=== PATIENT | female | born 1955 | race Caucasian/White ===

== ENCOUNTER 2016-09-18 18:24 | Emergency (ER) | payer OTHER ==
[~2016-09-18] VITALS: Ht 154.9 cm; Wt 68.0 kg
[~2016-09-18 18:24] MED LIST: ALPR2TAB3 PO; ATOR20TA42 PO; BACL20TA PO; CLOP75 PO; NEBI5 PO
[2016-09-18 18:25] VITALS: BP 140/74; PULSE 92; RESP 20; TEMP 98.5; O2SAT 94
--- NOTE | 2016-09-18 18:33 | PD ---
Physical Exam Date Seen by Provider: September 18, 2016 Time Seen by Provider: 18:30 Narrative 61 YOWF C/O R ARM PAIN FOR 2 DAYS. NO TRAUMA . 8/10 PAIN. H/O R ELBOW DISLOCATION. ON PLAVIX VSS wating for bed asignment Data Data Last Documented VS Vital Signs Date Time Temp Pulse Resp B/P Pulse Ox O2 Delivery O2 Flow Rate FiO2 09/18/16 18:25 98.5 92 20 140/74 94 Room Air [facility] Medical Record Reviewed: No Supervised Visit with MOHIT: Jean Rodriguez September 18, 2016 18:33
--- NOTE | 2016-09-18 19:09 | PD ---
HPI Chief Complaint: Pain: Acute or Chronic Time Seen by Provider: 19:05 Travel History International Travel<30 days: No Contact w/Intl Traveler<30days: No Traveled to known affect area: No History of Present Illness HPI 61-year-old female presents to the emergency department for evaluation of right arm pain that started yesterday when she woke up. She denies any trauma. She does report a small ecchymosis to the right upper arm. She is unsure how she got this. She reports history of right elbow dislocation, possible fracture based on what she is telling me. She states that she has not had any problems with that since he dislocation. The patient denies any fevers or chills. No redness or swelling. The patient states the pain is worse with movement. She has a history of CVA, hypertension, hyperlipidemia, anxiety. She is currently on Plavix. No chest pain or shortness of breath. No abdominal pain. No vomiting. PFSH Past Medical History Hx Anticoagulant Therapy: Yes (PLAVIX) Arthritis: Yes Autoimmune Disease: No Anxiety: Yes Depression: No Cancer: Yes (Skin on Face) Cerebrovascular Accident: Yes (2016) Diminished Hearing: No Endocrine: No Genitourinary: No Hypertension: Yes Immune Disorder: No Psychiatric: Yes Reproductive: No Migraines: Yes Ulcer: Yes Menopausal: Yes : 1 Para: 1 Tubal Ligation: Yes Past Surgical History Surgical History: No Previous Surgery Section: Yes Eye Surgery: Yes Gynecologic Surgery: Yes ( ) Social History Alcohol Use: No Tobacco Use: No Substance Use: No Allergies-Medications (Allergen,Severity, Reaction): Coded Allergies: Iodine (Verified Allergy, Unknown, 11/30/15) Penicillin (Verified Allergy, Unknown, 11/30/15) Reported Meds & Prescriptions Reported Meds & Active Scripts Active Plavix (Clopidogrel Bisulfate) 75 Mg Tab 75 Mg PO DAILY 31 Days Lipitor 20 Mg Tab (Atorvastatin) 20 Mg Tab 20 Mg PO HS 31 Days Reported Lioresal 20 Mg Tab (Baclofen) 20 Mg Tab 20 Mg PO TID Alprazolam 2 Mg Tab 0.5 Mg PO Q6H PRN Review of Systems Except as stated in HPI: all other systems reviewed are Neg Physical Exam Narrative GENERAL: Well-nourished, well-developed female patient, ambulatory. Afebrile. SKIN: Focused skin assessment warm/dry. Small ecchymosis is noted to right upper arm. No erythema. No warmth. No edema. HEAD: Normocephalic. Atraumatic. EYES: No scleral icterus. No injection or drainage. NECK: Supple, trachea midline. No JVD or lymphadenopathy. CARDIOVASCULAR: Regular rate and rhythm without murmurs, gallops, or rubs. Right radial pulse is 2+. RESPIRATORY: Breath sounds equal bilaterally. No accessory muscle use. Lungs sounds are clear to auscultation. GASTROINTESTINAL: Abdomen soft, non-tender, nondistended. MUSCULOSKELETAL: No cyanosis, or edema. Patient has tenderness to palpation over right upper shoulder, right posterior elbow. She has a normal grasp strength in the right hand. She has full range of motion of all digits of the right hand, right wrist without pain. She does experience pain with flexion and extension of the right elbow and right shoulder. Patient has full sensation to the distal right upper extremity. BACK: Nontender without obvious deformity. No CVA tenderness. Data Data Last Documented VS Vital Signs Date Time Temp Pulse Resp B/P Pulse Ox O2 Delivery O2 Flow Rate FiO2 09/18/16 18:25 98.5 92 20 140/74 94 Room Air Orders Acetamin-Hydrocod 325-5 Mg ([place] 5-325 (09/18/16 19:15) Electrocardiogram (09/18/16 ) Humerus (Min 2vws) (09/18/16 ) Lidocai-Epi 1%-1:100,000 Inj (Xylocaine- (09/18/16 19:15) Splint Or Brace Apply/Monitor (09/18/16 20:22) MDM Medical Decision Making Medical Screen Exam Complete: Yes Emergency Medical Condition: Yes Medical Record Reviewed: Yes Interpretation(s) x-ray of the right humerus - CONCLUSION: Unremarkable examination of the right humerus. Differential Diagnosis Muscle spasm versus strain versus fracture versus dislocation Narrative Course 61-year-old female presents to the emergency department for evaluation of right arm pain that started yesterday upon awakening. Patient does appear well on exam. There is no evidence of cellulitis or DVT on exam. No evidence of arterial occlusion as capillary refills less than 2 seconds and right radial pulse is 2+. I am able to reproduce pain with palpation over the right elbow and right shoulder. This pain is also reproduced with movement. EKG, x-ray of the right humerus are ordered and pending. EKG shows sinus rhythm, rate 74, no acute ST changes. X-ray of the right humerus is unremarkable. Patient will be provided a sling for, for. She is instructed to continue range of motion exercises while wearing sling. She will be discharged with a short-term prescription for Lortab for pain. She is instructed to follow-up with her primary care physician. She is to return for any acute worsening of symptoms. The patient was discharged in stable condition with instructions, including return instructions and follow up instructions. Diagnosis Primary Impression: Right elbow pain Additional Impression: Right shoulder strain Qualified Code: S46.911A - Right shoulder strain, initial encounter Referrals: Primary Care Physician 3 days Patient Instructions: Arm Pain (ED), General Instructions Additional Instructions: Take Lortab as directed as needed for pain. Wear sling for comfort. Make sure you complete range of motion exercises. Ice for 20 minutes 4-5 times daily. Follow-up with your primary care physician. Return to the emergency department for any acute worsening of symptoms. Med/Other Pt SpecificInfo: Prescription(s) given Scripts Hydrocodone-Acetaminophen (Lortab)5-325 Mg Tab1 Tab PO Q6H PRN (PAIN) #12 TAB Ref 0 Prov:Teri Coleman MD 09/18/16 Disposition: 01 DISCHARGE HOME Condition: Stable EstevanYanet September 18, 2016 19:08
[2016-09-18] MEDS ORDERED: LIDOCAINE 1%/EPINEPHrine 1:100,000 SOLN 20 ML VIAL INFIL ONE (19:15)
[2016-09-18] MEDS: ACETAMINOPHEN/HYDROcodone 325 MG/5 MG TAB PO ONE (19:45)
--- NOTE | 2016-09-18 20:14 | RADRPT ---
EXAM DATE/TIME: 09/18/2016 19:38 [facility] COMPARISON: No previous studies available for comparison. INDICATIONS : Right humerus pain for 2 days with no known injury MEDICAL HISTORY : None. SURGICAL HISTORY : None. ENCOUNTER: Initial ACUITY: 2 days PAIN SCORE: 7/10 LOCATION: Right entire humerus FINDINGS: Two view examination of the right humerus demonstrates no evidence of fracture or dislocation. Bony mineralization is normal. The soft tissue structures are intact. CONCLUSION: Unremarkable examination of the right humerus. Vinay Baxter MD on September 18, 2016 at 20:11 Board Certified Radiologist. This report was verified electronically.
[2016-09-18] MEDS ORDERED: HYDR-3533 PO (20:23)
--- NOTE | 2016-09-19 13:36 | EKG ---
Date Performed: 09/18/2016 Time Performed: 19:58:52 PTAGE: 61 years EKG: Sinus rhythm Since previous tracing, no significant change noted NORMAL ECG PREVIOUS TRACING : 11/30/2015 00.23 DOCTOR: Faviola Rowley Interpretating Date/Time 09/19/2016 13:35:33
== END 2016-09-18 20:26 | disposition home or self-care (01) ==
LOC: NEPD 18:24
DX: M25.521 Pain in right elbow (principal); S46.911A Strain of unspecified muscle, fascia and tendon at shoulder and upper arm level, right arm, initial encounter; Z79.01 Long term (current) use of anticoagulants; F41.9 Anxiety disorder, unspecified; Z86.73 Personal history of transient ischemic attack (TIA), and cerebral infarction without residual deficits; I10 Essential (primary) hypertension
CPT/HCPCS: 73060; 93005